=== PATIENT | female | born 1980 | race African-American/Black ===

== ENCOUNTER → 2017-01-20 | Outpatient (CLI) | payer OTHER ==
[2016-10-24 22:28] VITALS: BP 191/105
--- NOTE | 2017-01-20 09:46 | RAD ---
HISTORY: Right-sided sciatica Study: 4 views of the lumbar spine Comparison: None. Findings: Normal alignment without subluxation or listhesis. Disk heights are maintained. Vertebral body heig hts are normal. Sacroiliac joints are unremarkable. No evidence for acute fracture can be identifie d. IMPRESSION: 1. No acute abnormality of the lumbar spine. Reported By:
== END ==
LOC: RAD 09:03
PROVIDERS: ATTEND Specialist
DX: M54.41 Lumbago with sciatica, right side (principal)
CPT/HCPCS: 72110

== ENCOUNTER → 2017-02-01 | Outpatient (CLI) | payer OTHER ==
[2016-10-24 22:28] VITALS: BP 191/105
--- NOTE | 2017-02-01 14:30 | MRI ---
HISTORY: Back pain, right sciatica Study: MRI lumbar spine without contrast Comparison: None Technique: Multiplanar multi-sequence MRI of the lumbar spine was obtained. Sagittal T1, sagittal T 2, and stir weighted images, axial T1, and axial T2 images were obtained. Findings: The lumbar spine demonstrates normal alignment with the expected signal characteristics of the bone marrow. The conus of the cord terminates normally. T12 -- L1: No evidence for compressive disc disease. The neural foramina are patent. The joints are normal. L1 -- L2: No evidence for compressive disc disease. The neural foramina are patent. The joints are n ormal. L2 -- L3: No evidence for compressive disc disease. The neural foramina are patent. The joints are n ormal. L3 -- L4: There is concentric disc bulging which causes very minimal thecal sac effacement but contr ibutes pole to lateral recess and foraminal narrowing bilaterally left slightly worse than right. Th e joints demonstrate mild arthropathy bilaterally. L4 -- L5: Mild concentric disc bulging contributes along with mild facet arthropathy to lateral rece ss and foraminal narrowing bilaterally slightly worse on the left than the right. L5 -- S1: There is a small non compressive central disc protrusion present. The neural foramina are patent. The joints are normal. IMPRESSION: As above Reported By:
== END | disposition home or self-care (01) | DRG 552 ==
LOC: RAD 13:09
PROVIDERS: ATTEND Specialist
DX: M53.86 Other specified dorsopathies, lumbar region (principal); M54.31 Sciatica, right side
CPT/HCPCS: 72148

== ENCOUNTER 2017-02-11 00:10 | Emergency (ER) | payer OTHER ==
[2017-02-11 00:17] VITALS: BMI 38.7
[2017-02-11] MEDS ORDERED: NS 1000 ML 1,000 ML ONE (00:26)
[2017-02-11] MEDS ORDERED: NS 1000 ML 1,000 ML IV ONE (00:27)
[2017-02-11] MEDS ORDERED: ZOFRAN INJ 4 MG VIAL ONE (00:27)
[2017-02-11] MEDS ORDERED: ZOFRAN INJ 4 MG VIAL IVP ONE (00:27)
--- NOTE | 2017-02-11 00:30 | DR.GENAD ---
HPI - PCP Primary Care Physician: VISHNU - Complaint/Symptoms Chief Complaint Doctors Comments: Patient admits to nausea, vomiting (40x) and diarrhea sinc this morning (02/10) Denies history of cardiopulmonary disease Chief Complaint:: N/V, CHEST PAIN,DIARRHEA - Source History Provided: Patient - Mode of Arrival Mode of Arrival: Ambulatory - Timing Onset of Chief Complaint: 02/11/17 PMH - PMH Past Medical History: Yes Past Medical History: Hypertension Past Surgical History: Yes Surgical History: - Family History History of Family Medical Conditions: Yes Family Medical History: Sudden Cardiac , Hypertension - Social History Does patient currently use any type of tobacco product: No Have you used tobacco products in the last 12 months: No Type of Tobacco Use: None Does any household member use tobacco: No Alcohol Use: None Do you use any recreational Drugs:: No Lives With: Family Lives Where: Home - infectious screening In the last 2 months have you had wt loss of >10#?: NO Have you had fever, night sweats or hemotysis?: No Have you traveled outside the country in the last 6 months?: No Isolation: Standard ROS - Review of Systems Constitutional: negative: Chills Eyes: No Symptoms Reported ENTM: No Symptoms Reported Respiratoy: No Symptoms Reported Cardiovascular: No Symptoms Reported Gastrointestinal/Abdominal: No Symptoms Reported Genitourinary: No Symptoms Reported Neurological: No Symptoms Reported Musculoskeletal: No Symptoms Reported Integumentary: No Symptoms Reported Hematologic/Lymphatic: No Symptoms Reported Endocrine: No Symptoms Reported Psychiatric: No Symptoms Reported All Other Systems: Reviewed and Negative PE - Vital Signs Vitals: Temperature 98.8 F Pulse Rate [Left Radial] 84 Pulse Rate 67 Respiratory Rate 16 Blood Pressure [Right Arm] 187/104 Blood Pressure [Left Arm] 151/94 Blood Pressure 156/105 O2 Sat by Pulse Oximetry 99 - General Limitations: No Limitations General Appearance: Alert, In No Apparent Distress, Appears Intoxicated - Head Head Exam: Normal Inspection, Atraumatic - Eyes Eye exam: Normal Appearance, PERRL, EOMI - ENT ENT Exam: Mucous Membranes Dry External Ear Exam: Normal External Inspection TM/Canal Exam: Bilateral Normal Nose Exam: Normal Nose Exam Mouth Exam: Normal Inspection Throat Exam: Normal Inspection - Neck Neck Exam: Normal Inspection - Chest Chest Inspection: Normal Inspection - Respiratory Respiratory Exam: Normal Lung Sounds Bilat Respiratory Exam: Bilateral Clear to Auscultation - Cardiovascular Cardiovascular Exam: Regular Rate, Normal Rhythm - Abdominal Exam Abdominal Exam: Normal Inspection Abdominal Tenderness: negative: RUQ, RLQ, LUQ, LLQ, Epigastrium, Suprapubic, Diffuse, Mild, Moderate, Severe, Other - Extremities Extremities Exam: Normal Inspection, Full ROM - Back Back Exam: Normal Inspection - Neurologic Neurological Exam: Alert, Oriented X3, CN II-XII Intact ROR - Labs Reviewed Result Diagrams: 02/11/17 00:46 02/11/17 00:46 Laboratory: WBC 9.2 X10^3/uL (3.6-10.0) 02/11/17 00:46 RBC 4.69 X10^6/uL (3.5-5.4) 02/11/17 00:46 Hgb 13.3 g/dL (12.0-16.0) 02/11/17 00:46 Hct 40.0 % (36.0-47.0) 02/11/17 00:46 MCV 85.3 fL (80.0-100.0) 02/11/17 00:46 MCH 28.4 pg (27.0-34.0) 02/11/17 00:46 MCHC 33.3 g/dL (33.0-35.0) 02/11/17 00:46 RDW 17.7 % (11.6-16.5) H 02/11/17 00:46 Plt Count 294 X10^3/uL (150.0-450.0) 02/11/17 00:46 MPV 8.2 fL (7.4-11.0) 02/11/17 00:46 Neut % 79.8 % (42.0-75.0) H 02/11/17 00:46 Lymph % 16.7 % (21.0-51.0) L 02/11/17 00:46 Tensas % 2.3 % (0.0-13.0) 02/11/17 00:46 Eos % 0.3 % (0.9-2.9) L 02/11/17 00:46 Baso % 0.9 % (0.2-1.0) 02/11/17 00:46 Neut # 7.4 x10^3/uL (2.2-4.8) H 02/11/17 00:46 Lymph # 1.5 X10^3/uL (1.3-2.9) 02/11/17 00:46 [place]ensas # 0.2 x10^3/uL (0.3-0.8) L 02/11/17 00:46 Eos # 0.0 x10^3/uL (0.0-0.2) 02/11/17 00:46 Baso # 0.1 X10^3/uL (0.0-0.1) 02/11/17 00:46 Absolute Nucleated RBC 0.1 /100WBC 02/11/17 00:46 Sodium 140 mmol/L (136-145) 02/11/17 00:46 Corrected Sodium TNP 02/11/17 00:46 Potassium 4.1 mmol/L (3.5-5.1) 02/11/17 00:46 Chloride 102 mmol/L (98-107) 02/11/17 00:46 Carbon Dioxide 22.9 mmol/L (21-32) 02/11/17 00:46 BUN 11 mg/dL (7-18) 02/11/17 00:46 Creatinine 1.20 mg/dL (0.55-1.02) H 02/11/17 00:46 Est GFR (MDRD) Af Amer > 60 (>60) 02/11/17 00:46 Est GFR (MDRD) Non-Af 54 (>60) L 02/11/17 00:46 Glucose 95 mg/dL (65-99) 02/11/17 00:46 Calcium 10.3 mg/dL (8.5-10.1) H 02/11/17 00:46 C-Reactive Protein 2.70 mg/L (0-3.0) 02/11/17 00:46 Streptococcus Screen Negative (NEGATIVE) 02/11/17 01:32 - Diagnosis Discharge Problem: Gastroenteritis - Discharge Plan Condition: Stable - Follow ups/Referrals Follow ups/Referrals: Kevin MARES [Primary Care Provider] - 3 days - Instructions
[2017-02-11 00:59] LABS: BASOPHILS # (AUTO) 0.1 X10^3/uL (0.0-0.1); BASOPHILS % (AUTO) 0.9 % (0.2-1.0); EOSINOPHILS % (AUTO) 0.3 % (0.9-2.9); HEMOGLOBIN 13.3 g/dL (12.0-16.0); LYMPHOCYTES # (AUTO) 1.5 X10^3/uL (1.3-2.9); LYMPHOCYTES % (AUTO) 16.7 % (21.0-51.0); MEAN CORPUSCULAR HEMOGLOBIN 28.4 pg (27.0-34.0); MEAN CORPUSCULAR HGB CONC 33.3 g/dL (33.0-35.0); MEAN CORPUSCULAR VOLUME 85.3 fL (80.0-100.0); MEAN PLATELET VOLUME 8.2 fL (7.4-11.0); MONOCYTES # (AUTO) 0.2 x10^3/uL (0.3-0.8); MONOCYTES % (AUTO) 2.3 % (0.0-13.0); NEUTROPHILS # (AUTO) 7.4 x10^3/uL (2.2-4.8); NEUTROPHILS % (AUTO) 79.8 % (42.0-75.0); PLATELET COUNT 294 X10^3/uL (150.0-450.0); RED BLOOD COUNT 4.69 X10^6/uL (3.5-5.4); RED CELL DISTRIBUTION WIDTH 17.7 % (11.6-16.5); WHITE BLOOD COUNT 9.2 X10^3/uL (3.6-10.0)
[2017-02-11 01:03] LABS: BLOOD UREA NITROGEN 11 mg/dL (7-18); CALCIUM 10.3 mg/dL (8.5-10.1); CARBON DIOXIDE 22.9 mmol/L (21-32); CHLORIDE 102 mmol/L (98-107); GLUCOSE 95 mg/dL (65-99); SODIUM 140 mmol/L (136-145); eGFR BLACK RACES > 60 (>60); eGFR NON BLACK RACES 54 (>60)
[2017-02-11] MEDS ORDERED: PHENERGAN INJ 25 MG ONE ×2 (01:56→02:00)
[2017-02-11] MEDS ORDERED: PHENERGAN INJ 25 MG IV ONE (01:56)
[2017-02-11] MEDS ORDERED: CATAPRES TAB 0.2 MG PO ONE (02:22)
[2017-02-11] MEDS ORDERED: CATAPRES TAB 0.1 MG ONE (02:23)
[2017-02-11 02:44] VITALS: BP 158/98
== END 2017-02-11 02:45 | disposition home or self-care (01) ==
LOC: ER 00:10
DX: K52.89 Other specified noninfective gastroenteritis and colitis (principal)
CPT/HCPCS: 36415; 80048; 85025; 86140; 87070; 87880; 93041; 96365; 96374; 96375; 99283; 99284; A4222; J2405; J2550

== ENCOUNTER 2017-03-06 10:34 | Day surgery (SDC) | payer OTHER ==
[2017-03-06] MEDS ORDERED: XYLOCAINE 1 % (PLAIN) ONE (10:41)
[2017-03-06] MEDS ORDERED: MARCAINE 0.25% WITH EPI IJ ONE (10:41)
[2017-03-06] MEDS ORDERED: KENALOG INJ 40 MG ONE (10:44)
--- NOTE | 2017-03-06 11:00 | DR.UPDATE ---
H&P Update History and Physical Update: History and Physical reviewed and patient examined. Changes noted: NO Yes with the following:Agree with Dr. Hampton's H&P. Will proceed with TFESI L3-4 right.
[2017-03-06 11:40] VITALS: BP 172/93
== END 2017-03-06 11:40 | disposition home or self-care (01) | DRG 552 ==
LOC: SURG1 10:34
PROVIDERS: ATTEND Specialist
PROC: 3E0R3BZ Introduction of Anesthetic Agent into Spinal Canal, Percutaneous Approach (ICD-10-PCS; principal; 2017-03-06 12:00)
PROC: 3E0R33Z Introduction of Anti-inflammatory into Spinal Canal, Percutaneous Approach (ICD-10-PCS; principal; 2017-03-06 12:00)
DX: M54.41 Lumbago with sciatica, right side (principal)
CPT/HCPCS: 64483; 76000; S0020; J2001; J3301

== ENCOUNTER 2017-05-10 09:46 | Emergency (ER) | payer OTHER ==
[2017-05-10 09:53] VITALS: BP 180/96; BMI 32.4
--- NOTE | 2017-05-10 10:08 | DR.GENAD ---
HPI - PCP Primary Care Physician: VISHNU - HPI Comment HPI Comment: PATIENT SAID HEADACHE IS SIMILAR TO HER USUAL MIGRAINE. NO SINUS DRAINAGE. NO FEVER OR DYSURIA. HEADACHE IS GETTING WORSE. - Complaint/Symptoms Chief Complaint Doctors Comments: HEADACHE WITH NAUSEA TODAY. HISTORY MIGRAINE HEADACHE. Chief Complaint:: PATIENT STATED THAT SHE WOKE THIS MORNING WITH A MIGRAINE AND THAT SHE ALSO HAS BEEN N/V TODAY ALSO. SHE ALSO STATED THAT SHE HAS BEEN HAVING THIS PROBLEM EVERY OTHER MONTH. - Nurses notes reviewed Nurses Notes Review: Yes - Source History Provided: Patient, EMS - Mode of Arrival Mode of Arrival: EMS - Timing Onset of Chief Complaint: 05/10/17 Came on: Suddenly - Duration Duration: Constant Duration: Hours - Severity Severity: Moderate PMH - PMH Past Medical History: Yes Past Medical History: Migraines, Hypertension Past Surgical History: Yes Surgical History: - Family History History of Family Medical Conditions: Yes Family Medical History: Sudden Cardiac , Hypertension - Social History Does patient currently use any type of tobacco product: No Have you used tobacco products in the last 12 months: No Type of Tobacco Use: None Does any household member use tobacco: No Alcohol Use: None Do you use any recreational Drugs:: No Lives With: Family Lives Where: Home - infectious screening In the last 2 months have you had wt loss of >10#?: NO Have you had fever, night sweats or hemotysis?: No Have you traveled outside the country in the last 6 months?: No Isolation: Standard ROS - Review of Systems Constitutional: No Symptoms Reported Eyes: No Symptoms Reported. negative: Eye Pain, Discharge ENTM: No Symptoms Reported. negative: Ear Pain, Nose Discharge, Nose Congestion , Throat Pain Respiratoy: No Symptoms Reported Cardiovascular: No Symptoms Reported Gastrointestinal/Abdominal: No Symptoms Reported Genitourinary: No Symptoms Reported Neurological: Headache Musculoskeletal: No Symptoms Reported Integumentary: No Symptoms Reported Hematologic/Lymphatic: No Symptoms Reported Endocrine: No Symptoms Reported All Other Systems: Reviewed and Negative PE - Vital Signs Vitals: Temperature 97.9 F Pulse Rate 53 Respiratory Rate 20 Blood Pressure [Right Arm] 158/98 Blood Pressure [Left Arm] 151/94 Blood Pressure 180/96 O2 Sat by Pulse Oximetry 100 - General Limitations: No Limitations General Appearance: Alert - Head Head Exam: Normal Inspection - Eyes Eye exam: Normal Appearance - ENT ENT Exam: Normal External Ear Exam External Ear Exam: Normal External Inspection TM/Canal Exam: Bilateral Normal Nose Exam: Normal Nose Exam Mouth Exam: Normal Inspection Throat Exam: Normal Inspection - Neck Neck Exam: Trachea Midline - Chest Chest Inspection: Symmetric Chest Wall Rise - Respiratory Respiratory Exam: Normal Lung Sounds Bilat Respiratory Exam: Bilateral Clear to Auscultation - Cardiovascular Cardiovascular Exam: Regular Rate, Normal Rhythm, Normal Heart Sounds - Abdominal Exam Abdominal Exam: Normal Bowel Sounds, Soft. negative: Tenderness - Extremities Extremities Exam: Normal Inspection - Back Back Exam: Normal Inspection - Neurologic Neurological Exam: Alert, Oriented X3, CN II-XII Intact - Psychiatric Psychiatric Exam: Normal Affect, Normal Mood - Skin Skin Exam: Normal Color MDM - Differential Diagnosis Differential Diagnosis: MIGRAINE HEADACHE Course - Treatment Treatment: SEE ORDERS. IM DEMOROL AND ZOFRAN IN ED. PAIN IMPROVING. - Education/Counseling Education/Counseling: Patient, Education Educated On: Treatment, Diagnosis, Needs for Follow Up - Diagnosis Discharge Problem: Migraine - Discharge Plan Disposition: 01 HOME, SELF-CARE Condition: Stable Prescriptions: [id number] [Fioricet Tab] 1 tab PO Q8H PRN #15 tab PRN Reason: Migraine Headache Ondansetron HCl [Zofran Tab 4 mg] 4 mg PO Q8H PRN #12 tab PRN Reason: Nausea/Vomiting - Follow ups/Referrals Follow ups/Referrals: Kevin MARES [Primary Care Provider] - 3 days - Instructions Instructions: Migraine Headache, [id number] Additional Instructions: RETURN TO ED IF WORSE.
[2017-05-10] MEDS ORDERED: DEMEROL INJ IM ONE (10:23)
[2017-05-10] MEDS ORDERED: ZOFRAN INJ 4 MG VIAL IM ONE (10:24)
[2017-05-10] MEDS ORDERED: DEMEROL INJ ONE (10:32)
[2017-05-10] MEDS ORDERED: ZOFRAN INJ 4 MG VIAL ONE (10:32)
== END 2017-05-10 10:48 | disposition home or self-care (01) ==
LOC: ER 09:52
DX: G43.909 Migraine, unspecified, not intractable, without status migrainosus (principal)
CPT/HCPCS: 96372; 99282; J2175; J2405

== ENCOUNTER 2017-08-10 10:05 | Emergency (ER) | payer OTHER ==
[2017-08-10 10:15] VITALS: BMI 33.3
[2017-08-10] MEDS ORDERED: TORADOL 60 MG VIAL IM ONE (10:17)
[2017-08-10] MEDS ORDERED: CATAPRES TAB 0.2 MG PO ONE (10:18)
--- NOTE | 2017-08-10 10:19 | DR.GENAD ---
HPI - PCP Primary Care Physician: VISHNU HUTCHINS Comment HPI Comment: LBP onset this a.m. She has a hx of Sciatica - Complaint/Symptoms Chief Complaint:: PT C/O LT LOWER BACK PAIN RADIATING DOWN LT LEG. PT STATES SHE HAS BEEN HAVING THESE PAINS FOR ABOUT A WEEK, BUT THE PAIN IS JUST GETTING WORSE. PT STATES SHE HAS BEEN DIAGNOSED WITH SIATICA ABOUT 1 YR AGO. - Nurses notes reviewed Nurses Notes Review: Yes - Source History Provided: Patient - Mode of Arrival Mode of Arrival: EMS - Timing Onset of Chief Complaint: 08/04/17 Came on: Suddenly - Modifying Factors Worsens:: nothing Improves:: nothing PMH - PMH Past Medical History: Yes Past Medical History: Migraines, Hypertension Past Surgical History: Yes Surgical History: - Family History History of Family Medical Conditions: Yes Family Medical History: Sudden Cardiac , Hypertension - Social History Does any household member use tobacco: No Alcohol Use: None Do you use any recreational Drugs:: No Lives With: Family Lives Where: Home - infectious screening In the last 2 months have you had wt loss of >10#?: NO Have you had fever, night sweats or hemotysis?: No Have you traveled outside the country in the last 6 months?: No Isolation: Standard ROS - Review of Systems Constitutional: No Symptoms Reported Eyes: No Symptoms Reported ENTM: No Symptoms Reported Respiratoy: No Symptoms Reported Cardiovascular: No Symptoms Reported Gastrointestinal/Abdominal: No Symptoms Reported Genitourinary: No Symptoms Reported Neurological: No Symptoms Reported Musculoskeletal: Back Pain Integumentary: No Symptoms Reported Hematologic/Lymphatic: No Symptoms Reported Endocrine: No Symptoms Reported Psychiatric: No Symptoms Reported All Other Systems: Reviewed and Negative PE - Vital Signs Vitals: Temperature 97.7 F Pulse Rate 75 Respiratory Rate 18 Blood Pressure [Right Arm] 158/98 Blood Pressure [Left Arm] 151/94 Blood Pressure 204/120 O2 Sat by Pulse Oximetry 100 - General Limitations: No Limitations General Appearance: Alert - Head Head Exam: Normal Inspection - Eyes Eye exam: Normal Appearance - ENT ENT Exam: Normal Exam - Neck Neck Exam: Normal Inspection - Chest Chest Inspection: Normal Inspection - Respiratory Respiratory Exam: Normal Lung Sounds Bilat - Cardiovascular Cardiovascular Exam: Regular Rate, Normal Rhythm - Abdominal Exam Abdominal Exam: Normal Inspection, Normal Bowel Sounds, Soft - Extremities Extremities Exam: Normal Inspection - Back Back Exam: Normal Inspection - Neurologic Neurological Exam: Alert, Oriented X3, CN II-XII Intact - Psychiatric Psychiatric Exam: Normal Affect, Normal Mood - Skin Skin Exam: Warm - Diagnosis Discharge Problem: Back pain, Lumbar radiculopathy, chronic, HTN (hypertension), benign - Discharge Plan Disposition: HOME, SELF-CARE Condition: Stable - Follow ups/Referrals Follow ups/Referrals: Kevin MARES [Primary Care Provider] - 3 days - Instructions
[2017-08-10 10:21] VITALS: BP 186/108
[2017-08-10] MEDS ORDERED: CATAPRES TAB 0.2 MG ONE (10:21)
[2017-08-10] MEDS ORDERED: TORADOL 60 MG VIAL ONE (10:21)
== END 2017-08-10 10:58 | disposition left against medical advice (07) ==
LOC: ER 10:09
DX: M54.5 Low back pain (principal); M54.16 Radiculopathy, lumbar region; I10 Essential (primary) hypertension
CPT/HCPCS: 96372; 99282; J1885